=== PATIENT | female | born 1995 | race Two or more races ===

== ENCOUNTER 2023-09-21 13:05 | Inpatient (IN) | payer OTHER ==
[2023-09-21] MEDS: DEXTROSE 5%-LACTATED RINGERS 1,000 ML IV SCH (13:30)
[2023-09-21 13:51] VITALS: BMI 32.4
[2023-09-21] MEDS ORDERED: OXYTOCIN 20 UNITS in 0.9% NS 20 UNIT/1,000 ML INFUS.BAG IV ONE ×2 (14:21→17:18)
[2023-09-21 14:25] LABS: BASO % 0.5 % (0-2.0); EOS % 0.1 % (0-4.5); HEMATOCRIT 28.5 % (32.4-45.2); HEMOGLOBIN 9.6 GM/dL (10.7-15.3); LYMPH % 19.1 % (8-40); MCH 27.6 pg (25.7-33.7); MCHC 33.8 g/dl (32.0-36.0); MEAN CELL VOLUME 81.6 fl (80-96); MONO % 6.9 % (3.8-10.2); NEUT % 73.4 % (42.8-82.8); PLATELET COUNT 203 10^3/uL (134-434); RDW 14.2 % (11.6-15.6); WHITE BLOOD COUNT 8.3 K/mm3 (4.0-10.0)
[2023-09-21] MEDS ORDERED: LIDOCAINE HCL 1% PRESERVATIVE FREE - 30ML VIAL ONE (14:39)
[2023-09-21 14:44] LABS: POTASSIUM 3.7 mmol/L (3.5-5.1)
[2023-09-21 14:46] LABS: CALCIUM 8.2 mg/dL (8.5-10.1)
[2023-09-21 14:47] LABS: BLOOD UREA NITROGEN 4.8 mg/dL (7-18)
[2023-09-21 14:50] LABS: CREATININE 0.4 mg/dL (0.55-1.3)
[2023-09-21] MEDS ORDERED: oxyCODONE HCL 5 MG TABLET ONE (15:12)
[2023-09-21] MEDS ORDERED: ACETAMINOPHEN 325 MG TABLET (FP) ONE (15:13)
[2023-09-21 15:15] LABS: SYPHILIS W/ RPR CONF NON-REACTIVE (NONREACTIVE)
[2023-09-21] MEDS: oxyCODONE HCL 5 MG TABLET PO PRN (15:15)
[2023-09-21] MEDS: ACETAMINOPHEN 325 MG TABLET (FP) PO PRN (15:15)
[2023-09-21 15:17] LABS: ACTIVATED PTT 28.4 SECONDS (25.2-36.5); INR 1.03 (0.83-1.09); PROTHROMBIN TIME (PATIENT) 11.9 SEC (9.7-13.0)
[2023-09-21] MEDS ORDERED: BISACODYL 10 MG SUPP.RECT RC PRN (15:26)
[2023-09-21] MEDS ORDERED: BENZOCAINE 20% 57 GM BOTTLE TP PRN (15:26)
[2023-09-21] MEDS ORDERED: METHYLERGONOVINE MALEATE 0.2 MG/1 ML AMP IM PRN (15:26)
[2023-09-21] MEDS ORDERED: WITCH HAZEL 50% (TUCKS) 40 PAD/JAR PAD TP PRN (15:26)
[2023-09-21] MEDS ORDERED: BENZOCAINE 28 GM HEMORRHOIDAL OINTMENT TP PRN (15:26)
[2023-09-21 15:44] LABS: HIV INTERPRETATION NEGATIVE (NEGATIVE)
[2023-09-21] MEDS: OXYTOCIN 20 UNITS in 0.9% NS 20 UNIT/1,000 ML INFUS.BAG IV SCH (17:17)
[2023-09-21 17:49] VITALS: RESP 18
[2023-09-21] MEDS: IBUPROFEN 600 MG TABLET (FP) PO PRN (19:31)
[2023-09-22 08:12] LABS: BASO % 0.1 % (0-2.0); EOS % 0.2 % (0-4.5); HEMATOCRIT 26.2 % (32.4-45.2); LYMPH % 19.9 % (8-40); MCH 28.1 pg (25.7-33.7); MCHC 34.4 g/dl (32.0-36.0); MEAN CELL VOLUME 81.7 fl (80-96); MEAN PLT VOLUME 8.1 fl (7.5-11.1); MONO % 9.2 % (3.8-10.2); NEUT % 70.6 % (42.8-82.8); PLATELET COUNT 198 10^3/uL (134-434); RBC 3.21 M/mm3 (3.60-5.2); RDW 14.2 % (11.6-15.6)
[2023-09-22] MEDS: FERROUS SO4 325 MG TABLET (FP) PO SCH (09:27)
[2023-09-22] MEDS: PRENATAL VITAMINS W/ FOLIC ACID TABLET (FP) PO SCH (09:27)
[2023-09-22] MEDS ORDERED: SENNOSIDES/DOCUSATE COMBO (SENNA PLUS) TABLET (UD) PO PRN (22:00)
[2023-09-23 09:58] VITALS: BP 115/79; PULSE 75; TEMP 98
== END 2023-09-23 11:45 | disposition home or self-care (01) | DRG 560 ==
LOC: JLDR 13:05 → J3W 17:34
PROVIDERS: ADMIT Obstetrics & Gynecology; ATTEND Obstetrics & Gynecology
PROC: 10E0XZZ Delivery of Products of Conception, External Approach (ICD-10-PCS; principal; 2023-09-21)
DX: O80 Encounter for full-term uncomplicated delivery (principal); Z3A.37 37 weeks gestation of pregnancy; Z37.0 Single live birth
CPT/HCPCS: 36415; 80048; 85025; 85610; 85730; 86780; 86850; 86900; 86901; 87389